=== PATIENT | male | born 1965 ===

== ENCOUNTER 2022-11-09 19:36 | Inpatient (IN) | payer MEDICARE, MEDICAID, SELFPAY ==
[2022-11-09 20:00] VITALS: BP 104/67; PULSE 60; RESP 20; TEMP 36.7; O2SAT 98
[2022-11-09 21:26] VITALS: BMI 23.3
--- NOTE | 2022-11-09 23:36 | PC.ADMIT ---
Pt is a 57 yo male, admitted on a CV with a diagnosis of schizophrenia. He appear unkempt with dirty feet and toes. He was agitated, easily irritable and uncooperative during the admission process. Pt said i don't have time for all this, I just want to go back to my job. He claimed to be searching for an apartment but refused to answer the question about being homeless. He was unable to provide reliable history, not currently on taking any medications and has history of not being meds compliant. He does not want anyone to share his information or visit him while on admission. Orientation to the unit was refused, treatment plan initiated.
[2022-11-10 10:58] VITALS: BP 105/85; PULSE 96; TEMP 36.6; O2SAT 96
--- NOTE | 2022-11-10 13:13 | PM.EVENT ---
Event Note Date of Service: 11/10/22 Event Note: Two attempts made to see patient but refused. There is no evidence of distress. Vitals are stable. Paper chart reviewed. He is a 1ppd smoker, continue NRT. He denies any complaints at this time. Thank you for allowing me to participate in this consult. Signing off at this time. Please do not hesitate to call for further questions or if any medical issues arise. Time Spent With Patient Time: Total time managing care of this patient today ____ minutes.
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
[2022-11-10 15:33] VITALS: BMI 23.7
[2022-11-10] MEDS: OLANZapine 5 MG TABLET PO (17:05)
[2022-11-10] MEDS: OLANZapine 10 MG TABLET PO (21:11)
[2022-11-10] MEDS: traZODone HCL 50 MG TABLET PO (21:11)
[2022-11-11 06:00] VITALS: RESP 16
[2022-11-11] MEDS: OLANZapine 5 MG TABLET PO ×2 (09:12→14:12)
[2022-11-11 09:28] LABS: Estimated Average Glucose 108 mg/dL; Hemoglobin A1c % 5.4 %
[2022-11-11 09:31] LABS: Cholesterol 129 mg/dL; HDL Cholesterol 49 mg/dL; LDL Cholesterol Calculated 70 mg/dl; Triglycerides 54 mg/dL
--- NOTE | 2022-11-11 15:32 | HO.PSYCHPN ---
Subjective Subjective Date of Service: 11/11/22 Reason For Visit: Schizoaffective Disorder Bipolar Type Interim History: Met with patient; discussed with team Patient friendly on approach, says he is all right patient self dialogue at times, some yelling outbursts; says medications are helping as it is a concentrator though cannot explain what he means. Staff feels that he is overall more calm since starting Zyprexa. utilities ground worker talked with CSS worker who reports patient is not a danger to himself or others; says he was a little dysregulated this past week but is likely approaching baseline. Mental Status Exam Mental Status Exam Narrative: Pt is alert and oriented; behavior is mostly cooperative, intermittently irritable, sometimes yelling, talking to himself; patient is not in distress; dressed in hospital attire with unkempt hair with marginal hygiene; mood is described as all right and affect congruent; eye contact appropriate; Speech is normal rate, volume and prosody and not pressured; no psychomotor agitation/retardation present; thought process is goal directed but can be tangential; Thought content is on various things, intermittently expressing delusional thinking; denies any SI/HI. Positive for AH Patients insight and judgment impaired but likely approaching baseline Diagnostics Vital Signs (24Hr): Vital Signs - 24 hr 11/11/22 06:00 Respiratory Rate 16 BMI result Body Mass Index 23.7 Labs Labs: Laboratory Results - last 48 hr 11/11/22 11/11/22 09:01 09:01 Estimat Average Glucose 108 Hemoglobin A1c % 5.4 Triglycerides 54 Cholesterol 129 LDL Cholesterol, Calc 70 HDL Cholesterol 49 Medications Medications Current Medications Acetaminophen (Acetaminophen 325 Mg Tablet) 650 mg PO Q6H PRN PRN Reason: Headache/Pain Mild Scale (1-3) Al Hydroxide/Mg Hydroxide (Magnesium Hydrox/Alum Hydrox 30 Ml Oral.Susp) 30 ml PO Q6H PRN PRN Reason: Heartburn/Nausea Hydroxyzine HCl (Hydroxyzine Hcl 25 Mg Tablet) 25 mg PO Q6H PRN PRN Reason: Anxiety Magnesium Hydroxide (Milk Of Magnesia 30 Ml Oral.Susp) 30 ml PO DAILY PRN PRN Reason: Constipation Nicotine Polacrilex (Nicotine Polacrilex 2 Mg Gum) 4 mg BUCCAL Q2H PRN PRN Reason: Nicotine Cravings Olanzapine (Olanzapine 5 Mg Tablet) 5 mg PO TID PRN PRN Reason: agitation Last Admin: 11/11/22 14:12 Dose: 5 mg Olanzapine (Olanzapine 10 Mg Tablet) 10 mg PO BEDTIME GUTIERREZ Last Admin: 11/10/22 21:11 Dose: 10 mg Trazodone HCl (Trazodone Hcl 50 Mg Tablet) 50 mg PO BEDTIME MRX1 PRN PRN Reason: Insomnia Last Admin: 11/10/22 21:11 Dose: 50 mg Allergies Allergies Allergy/AdvReac Type Severity Reaction Status Date / Time No Known Allergies Allergy Verified 11/10/22 00:22 Assessment & Plan Assessment & Plan (1) Schizophrenia: Status: Acute Code(s): F20.9 - Schizophrenia, unspecified Plan restart zyprexa 10 mg QHS, which pt has been on in the past. Hospital course: 11/11 continue current treatment plan as patient seems to be responding well to Zyprexa. CSS staff report that patient seems to be approaching baseline. Patient educated on: diagnosis and medication risk/benefits Informed Consent: understands and further education needed Reason for continued inpatient stay Substantial Risk for: rapid decompensation Time Spent With Patient Time: Total time managing care of this patient today ____ minutes.
[2022-11-11] MEDS: OLANZapine 10 MG TABLET PO (21:08)
[2022-11-11 21:10] VITALS: BP 100/58; PULSE 65; TEMP 36.9; O2SAT 95
[2022-11-12 08:10] VITALS: BP 110/67; PULSE 76; RESP 18; TEMP 36.6; O2SAT 100
[2022-11-12] MEDS: OLANZapine 5 MG TABLET PO (09:39)
--- NOTE | 2022-11-12 14:25 | HO.PSYCHPN ---
Subjective Subjective Date of Service: 11/12/22 Reason For Visit: Schizoaffective Disorder Bipolar Type Subjective Notes: Conditional Voluntary Medical Problems Affecting Mental Status: No Interim History: Met with patient. Discussed with Nursing. Chart reviewed. As per nursing has been anxious with some loosening of association and broken sleep and internally preoccupied. With information writer was pleasant and engaged. In his room with poor self-care. Reports feeling safe. Sleep improving. Feels that things are gradually improving in terms of focus, concentration and feeling more safe with olanzapine. Reports hoping to reapply for [facility] benefits as part of his treatment and disposition plan. Medication Compliance: Yes Side effects from medications: No Attending Groups: No Review of Systems Acute medical concerns: No Review of Systems Review of Systems Yes all other systems are reviewed and are negative Mental Status Exam Mental Status Exam Narrative: Pt is alert and oriented; behavior is mostly cooperative, intermittently irritable, sometimes yelling, talking to himself; patient is not in distress; dressed in hospital attire with unkempt hair with marginal hygiene; mood is described as ok and affect congruent; eye contact appropriate; Speech is normal rate, volume and prosody and not pressured; no psychomotor agitation/retardation present; thought process is goal directed but can be tangential; No current delusional thinking evident; denies any SI/HI. Internally preoccupied. Patients insight and judgment impaired but likely approaching baseline Diagnostics Vital Signs (24Hr): Vital Signs - 24 hr 11/11/22 21:10 11/12/22 08:10 Temperature 98.4 F 97.9 F Pulse Rate 65 76 Respiratory Rate 18 Blood Pressure 100/58 L 110/67 Pulse Oximetry 95 100 Oxygen Delivery Method Room Air Room Air BMI result Body Mass Index 23.7 Labs Labs: Laboratory Results - last 48 hr 11/11/22 11/11/22 09:01 09:01 Estimat Average Glucose 108 Hemoglobin A1c % 5.4 Triglycerides 54 Cholesterol 129 LDL Cholesterol, Calc 70 HDL Cholesterol 49 Medications Medications Current Medications Acetaminophen (Acetaminophen 325 Mg Tablet) 650 mg PO Q6H PRN PRN Reason: Headache/Pain Mild Scale (1-3) Al Hydroxide/Mg Hydroxide (Magnesium Hydrox/Alum Hydrox 30 Ml Oral.Susp) 30 ml PO Q6H PRN PRN Reason: Heartburn/Nausea Hydroxyzine HCl (Hydroxyzine Hcl 25 Mg Tablet) 25 mg PO Q6H PRN PRN Reason: Anxiety Magnesium Hydroxide (Milk Of Magnesia 30 Ml Oral.Susp) 30 ml PO DAILY PRN PRN Reason: Constipation Nicotine Polacrilex (Nicotine Polacrilex 2 Mg Gum) 4 mg BUCCAL Q2H PRN PRN Reason: Nicotine Cravings Olanzapine (Olanzapine 5 Mg Tablet) 5 mg PO TID PRN PRN Reason: agitation Last Admin: 11/12/22 09:39 Dose: 5 mg Olanzapine (Olanzapine 10 Mg Tablet) 10 mg PO BEDTIME GUTIERREZ Last Admin: 11/11/22 21:08 Dose: 10 mg Trazodone HCl (Trazodone Hcl 50 Mg Tablet) 50 mg PO BEDTIME MRX1 PRN PRN Reason: Insomnia Last Admin: 11/10/22 21:11 Dose: 50 mg Allergies Allergies Allergy/AdvReac Type Severity Reaction Status Date / Time No Known Allergies Allergy Verified 11/10/22 00:22 Assessment & Plan Assessment & Plan (1) Schizophrenia: Status: Acute Code(s): F20.9 - Schizophrenia, unspecified Plan restart zyprexa 10 mg QHS, which pt has been on in the past. Hospital course: 11/11 continue current treatment plan as patient seems to be responding well to Zyprexa. CSS staff report that patient seems to be approaching baseline. 11/12/2022: No changes to current plan Reason for continued inpatient stay Substantial Risk for: inability to function Time Spent With Patient Time: Total time managing care of this patient today ____ minutes.
[2022-11-12 20:45] VITALS: BP 101/62; PULSE 65; TEMP 36.4; O2SAT 96
[2022-11-12] MEDS: OLANZapine 10 MG TABLET PO (20:53)
[2022-11-13 08:40] VITALS: BP 135/80; PULSE 79; RESP 18; TEMP 36.7; O2SAT 97
[2022-11-13] MEDS: OLANZapine 5 MG TABLET PO (09:32)
--- NOTE | 2022-11-13 13:32 | HO.PSYCHPN ---
Subjective Subjective Date of Service: 11/13/22 Reason For Visit: Schizoaffective Disorder Bipolar Type Subjective Notes: Conditional Voluntary Medical Problems Affecting Mental Status: No Interim History: Met with patient. Discussed with Nursing. Chart reviewed. As per nursing has been anxious with some loosening of association internally preoccupied. With web content writer was pleasant and engaged. In his room with poor self-care. Reports feeling safe. Sleep improving. Denies psychosis with web content writer. Feels that things are gradually improving in terms of focus, concentration and feeling more safe with olanzapine. Reports hoping to reapply for [facility] benefits as part of his treatment and disposition plan. Medication Compliance: Yes Side effects from medications: No Attending Groups: No Review of Systems Acute medical concerns: No Review of Systems Review of Systems Yes all other systems are reviewed and are negative Mental Status Exam Mental Status Exam Narrative: Pt is alert and oriented; behavior is mostly cooperative, intermittently irritable, sometimes yelling, talking to himself; patient is not in distress; dressed in hospital attire with unkempt hair with marginal hygiene; mood is described as ok and affect congruent; eye contact appropriate; Speech is normal rate, volume and prosody and not pressured; no psychomotor agitation/retardation present; thought process is goal directed but can be tangential; No current delusional thinking evident; denies any SI/HI. Internally preoccupied. Patients insight and judgment impaired but likely approaching baseline Diagnostics Vital Signs (24Hr): Vital Signs - 24 hr 11/12/22 20:45 11/13/22 08:40 Temperature 97.6 F 98.1 F Pulse Rate 65 79 Respiratory Rate 18 Blood Pressure 101/62 135/80 Pulse Oximetry 96 97 Oxygen Delivery Method Room Air Room Air BMI result Body Mass Index 23.7 Medications Medications Current Medications Acetaminophen (Acetaminophen 325 Mg Tablet) 650 mg PO Q6H PRN PRN Reason: Headache/Pain Mild Scale (1-3) Al Hydroxide/Mg Hydroxide (Magnesium Hydrox/Alum Hydrox 30 Ml Oral.Susp) 30 ml PO Q6H PRN PRN Reason: Heartburn/Nausea Hydroxyzine HCl (Hydroxyzine Hcl 25 Mg Tablet) 25 mg PO Q6H PRN PRN Reason: Anxiety Magnesium Hydroxide (Milk Of Magnesia 30 Ml Oral.Susp) 30 ml PO DAILY PRN PRN Reason: Constipation Nicotine Polacrilex (Nicotine Polacrilex 2 Mg Gum) 4 mg BUCCAL Q2H PRN PRN Reason: Nicotine Cravings Olanzapine (Olanzapine 5 Mg Tablet) 5 mg PO TID PRN PRN Reason: agitation Last Admin: 11/13/22 09:32 Dose: 5 mg Olanzapine (Olanzapine 10 Mg Tablet) 10 mg PO BEDTIME GUTIERREZ Last Admin: 11/12/22 20:53 Dose: 10 mg Trazodone HCl (Trazodone Hcl 50 Mg Tablet) 50 mg PO BEDTIME MRX1 PRN PRN Reason: Insomnia Last Admin: 11/10/22 21:11 Dose: 50 mg Allergies Allergies Allergy/AdvReac Type Severity Reaction Status Date / Time No Known Allergies Allergy Verified 11/10/22 00:22 Assessment & Plan Assessment & Plan (1) Schizophrenia: Status: Acute Code(s): F20.9 - Schizophrenia, unspecified Plan restart zyprexa 10 mg QHS, which pt has been on in the past. Hospital course: 11/11 continue current treatment plan as patient seems to be responding well to Zyprexa. CSS staff report that patient seems to be approaching baseline. 11/13/2022: No changes to current plan Reason for continued inpatient stay Substantial Risk for: inability to function Time Spent With Patient Time: Total time managing care of this patient today ____ minutes.
[2022-11-13 18:00] VITALS: BP 119/57; PULSE 53; RESP 18; TEMP 36.8; O2SAT 97
[2022-11-13] MEDS: OLANZapine 10 MG TABLET PO (21:26)
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
[2022-11-14 10:15] VITALS: BP 102/58; PULSE 70; TEMP 36.9; O2SAT 97
--- NOTE | 2022-11-14 12:07 | HO.PSYCHPN ---
Subjective Subjective Date of Service: 11/14/22 Reason For Visit: Schizoaffective Disorder Bipolar Type Interim History: met with patient; discussed with team pt says he's fine.. says sleeping well enough and that the medication is helping; does not want med increase. Pt says he plans to take meds on discharge and refers to outpt provider, Dr. Rios and that he'll continue to follow up with him. Pt explains why he's been homeless and plans to go to [place] [facility] [place], which is housing for homeless vets. No other complaints or requests. Mental Status Exam Mental Status Exam Narrative: Pt is alert and oriented; behavior is cooperative; patient is not in distress; dressed in hospital attire with unkempt hair with marginal hygiene; mood is described as level and affect congruent; eye contact appropriate; Speech is normal rate, volume and prosody and not pressured; no psychomotor agitation/retardation present; thought process is goal directed but can be tangential; No current delusional thinking evident; denies any SI/HI/AVH. Patients insight and judgment impaired but likely approaching baseline Diagnostics Vital Signs (24Hr): Vital Signs - 24 hr 11/13/22 18:00 11/14/22 10:15 Temperature 98.3 F 98.5 F Pulse Rate 53 70 Respiratory Rate 18 Blood Pressure 119/57 L 102/58 L Pulse Oximetry 97 97 Oxygen Delivery Method Room Air Room Air BMI result Body Mass Index 23.7 Medications Medications Current Medications Acetaminophen (Acetaminophen 325 Mg Tablet) 650 mg PO Q6H PRN PRN Reason: Headache/Pain Mild Scale (1-3) Al Hydroxide/Mg Hydroxide (Magnesium Hydrox/Alum Hydrox 30 Ml Oral.Susp) 30 ml PO Q6H PRN PRN Reason: Heartburn/Nausea Hydroxyzine HCl (Hydroxyzine Hcl 25 Mg Tablet) 25 mg PO Q6H PRN PRN Reason: Anxiety Magnesium Hydroxide (Milk Of Magnesia 30 Ml Oral.Susp) 30 ml PO DAILY PRN PRN Reason: Constipation Nicotine Polacrilex (Nicotine Polacrilex 2 Mg Gum) 4 mg BUCCAL Q2H PRN PRN Reason: Nicotine Cravings Olanzapine (Olanzapine 5 Mg Tablet) 5 mg PO TID PRN PRN Reason: agitation Last Admin: 11/13/22 09:32 Dose: 5 mg Olanzapine (Olanzapine 10 Mg Tablet) 10 mg PO BEDTIME GUTIERREZ Last Admin: 11/13/22 21:26 Dose: 10 mg Trazodone HCl (Trazodone Hcl 50 Mg Tablet) 50 mg PO BEDTIME MRX1 PRN PRN Reason: Insomnia Last Admin: 11/10/22 21:11 Dose: 50 mg Allergies Allergies Allergy/AdvReac Type Severity Reaction Status Date / Time No Known Allergies Allergy Verified 11/10/22 00:22 Assessment & Plan Assessment & Plan (1) Schizophrenia: Status: Acute Code(s): F20.9 - Schizophrenia, unspecified Plan restart zyprexa 10 mg QHS, which pt has been on in the past. Hospital course: 11/11 continue current treatment plan as patient seems to be responding well to Zyprexa. CSS staff report that patient seems to be approaching baseline. 11/13/2022: No changes to current plan 11/14: continue current tx plan; pt seems to be stabilizing; remains in good behavioral and impulse control; pt likely close to baseline Patient educated on: diagnosis, medication risk/benefits and therapeutic strategies Informed Consent: understands, does not understand and further education needed Reason for continued inpatient stay Substantial Risk for: med/psych decompensation Time Spent With Patient Time: Total time managing care of this patient today ____ minutes.
[2022-11-14 20:24] VITALS: BP 107/60; PULSE 81; TEMP 36.9; O2SAT 95
[2022-11-14] MEDS: OLANZapine 10 MG TABLET PO (20:26)
[2022-11-15 11:46] VITALS: BP 113/69; PULSE 90; TEMP 36.9; O2SAT 100
--- NOTE | 2022-11-15 15:13 | HO.PSYCHPN ---
Subjective Subjective Date of Service: 11/15/22 Reason For Visit: Schizoaffective Disorder Bipolar Type Interim History: Met with patient. Discussed with Nursing. Chart reviewed. Reportedly isolating to his room. Internally preoccupied and seen self dialoguing at times per nursing team. Slept well. VSS. Adherent to medications. With health underwriter was pleasant and engaged. He reported depression lessened and improved. Discussed [facility] and wanting to go to their housing. Tolerating medications well. Denies SI. Denied AVH. Review of Systems Review of Systems Yes all other systems are reviewed and are negative Mental Status Exam Mental Status Exam Narrative: Pt is alert and oriented; behavior is mostly cooperative; patient is not in distress; dressed in hospital attire with unkempt hair with marginal hygiene; mood is described as ok and affect congruent; eye contact appropriate; Speech is normal rate, volume and prosody and not pressured; no psychomotor agitation/retardation present; thought process is goal directed but can be tangential; No current delusional thinking evident; denies any SI/HI. Internally preoccupied. Patients insight and judgment impaired but likely approaching baseline Diagnostics Vital Signs (24Hr): Vital Signs - 24 hr 11/14/22 20:24 11/15/22 11:46 Temperature 98.4 F 98.5 F Pulse Rate 81 90 Blood Pressure 107/60 113/69 Pulse Oximetry 95 100 Oxygen Delivery Method Room Air Room Air BMI result Body Mass Index 23.7 Medications Medications Current Medications Acetaminophen (Acetaminophen 325 Mg Tablet) 650 mg PO Q6H PRN PRN Reason: Headache/Pain Mild Scale (1-3) Al Hydroxide/Mg Hydroxide (Magnesium Hydrox/Alum Hydrox 30 Ml Oral.Susp) 30 ml PO Q6H PRN PRN Reason: Heartburn/Nausea Hydroxyzine HCl (Hydroxyzine Hcl 25 Mg Tablet) 25 mg PO Q6H PRN PRN Reason: Anxiety Magnesium Hydroxide (Milk Of Magnesia 30 Ml Oral.Susp) 30 ml PO DAILY PRN PRN Reason: Constipation Nicotine Polacrilex (Nicotine Polacrilex 2 Mg Gum) 4 mg BUCCAL Q2H PRN PRN Reason: Nicotine Cravings Olanzapine (Olanzapine 5 Mg Tablet) 5 mg PO TID PRN PRN Reason: agitation Last Admin: 11/13/22 09:32 Dose: 5 mg Olanzapine (Olanzapine 10 Mg Tablet) 10 mg PO BEDTIME GUTIERREZ Last Admin: 11/14/22 20:26 Dose: 10 mg Trazodone HCl (Trazodone Hcl 50 Mg Tablet) 50 mg PO BEDTIME MRX1 PRN PRN Reason: Insomnia Last Admin: 11/10/22 21:11 Dose: 50 mg Allergies Allergies Allergy/AdvReac Type Severity Reaction Status Date / Time No Known Allergies Allergy Verified 11/10/22 00:22 Assessment & Plan Assessment & Plan (1) Schizophrenia: Status: Acute Code(s): F20.9 - Schizophrenia, unspecified Plan restart zyprexa 10 mg QHS, which pt has been on in the past. Hospital course: 11/11 continue current treatment plan as patient seems to be responding well to Zyprexa. CSS staff report that patient seems to be approaching baseline. 11/13/2022: No changes to current plan 11/15: Continue treatment plan. Reason for continued inpatient stay Substantial Risk for: inability to function and rapid decompensation Time Spent With Patient Time: Total time managing care of this patient today ____ minutes.
[2022-11-15 21:04] VITALS: BP 123/58; PULSE 57; RESP 18; TEMP 36.2; O2SAT 96
[2022-11-15] MEDS: OLANZapine 10 MG TABLET PO (21:06)
[2022-11-16 06:00] VITALS: BP 108/73; PULSE 62; RESP 16; O2SAT 98
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
== END 2022-11-16 14:08 | disposition home or self-care (01) | DRG 885 ==
PROVIDERS: Psychiatry & Neurology Psychiatry; Admitting Provider Psychiatry & Neurology Psychiatry; Visit Provider Psychiatry & Neurology Psychiatry
DX: F20.0 Paranoid schizophrenia (principal); F17.210 Nicotine dependence, cigarettes, uncomplicated; Z71.6 Tobacco abuse counseling; Z59.02 Unsheltered homelessness
CPT/HCPCS: 36415; 80061; 83036